=== PATIENT | female | born 1965 | race Caucasian/White ===

== ENCOUNTER → 2017-07-27 | Outpatient (CLI) | payer OTHER ==
[~2017-07-27] MED LIST: ALBU90OI61 INH; AMOX500 PO; ANTOXYBENA RIGHTEAR; Amoxicillin500 MG PO; Aygestin5 MG PO; B-12 DUAL SP5000 MCG PO; BACL10 PO; CARB100ER PO; CEPH500 PO; CHOL10002 PO; CIPHYDOTSU RIGHTEAR; CITA20; DOCU100 PO; DULO60 PO; FERROUS SULFATE PO; FISH OIL 1,0001 EAC1 PO; FISH OIL 1,0001 EACH PO; FLUO10 MT; Ferrous Sulfat325 MG PO; Fish Oil 10001000 MG PO; GABA300 PO; HYDACE5 PO; HYDHCL25 PO; IBUP600 PO; IBUP800 PO; INSDET100 SC; INSDET100 SQ; INSULANPEN SC; LEVEMIR FL100 UNIT/1 SC; LEVO-T50 MCG PO; LEVSOD100 PO; LISI5 PO; LOPE2C PO; LORA.5 PO; LORA1 PO; META800 PO; METF500 PO; METF500C PO; METFORMIN PO; MIRT15 PO; NAPR550 PO; Norco 5-325 Ta1 EACH PO; Novolog Fl100 UNIT/1 SC; OMEP20ER PO; OXYACE5T PO; Omeprazole20 M1 PO; PARO20 PO; PARO30 PO; PIOG15; PRAZ2 PO; PRED20 PO; PROM25 PO; PROM6.25SY PO; PYRI100 PO; Percocet 5-3251 EACH PO; Prilosec Otc20 MG PO; ROPI.25 PO; SERT100 PO; Solaraze100 GM TOP; TRULICITY0.75 MG/0. SC; TRULICITY1.5 MG/0.5 SQ; VENL75ER PO; VITAMIN B122500 MC1 PO; VITAMIN B6 PO; VITAMIN D310000 UNI1 PO; Voltaren100 GM TOP; ZOLOFT PO
[2017-07-29 11:36] LABS: HPV Genotype 16 Not Detected (NOTDET); HPV Genotype 18 Not Detected (NOTDET)
[2017-08-07 20:39] LABS: HPV High Risk Other Not Detected (NOTDET)
== END | disposition home or self-care (01) ==
LOC: LAB 12:18
PROVIDERS: Obstetrics & Gynecology
DX: R87.810 Cervical high risk human papillomavirus (HPV) DNA test positive (principal)
CPT/HCPCS: 87624; 88142

== ENCOUNTER 2017-10-13 10:18 | Day surgery (SDC) | payer OTHER ==
[~2017-10-13] VITALS: Ht 175.3 cm; Wt 147.9 kg
[~2017-10-13 10:18] MED LIST changes: -B-12 DUAL SP5000 MCG PO; -CHOL10002 PO; -DOCU100 PO; -FERROUS SULFATE PO; -Ferrous Sulfat325 MG PO; -Fish Oil 10001000 MG PO; -HYDHCL25 PO; -INSDET100 SC; -LEVO-T50 MCG PO; -LEVSOD100 PO; -METF500C PO; -Novolog Fl100 UNIT/1 SC; -Omeprazole20 M1 PO; -PARO20 PO; -PARO30 PO; -PYRI100 PO; -Percocet 5-3251 EACH PO; -Solaraze100 GM TOP; -VITAMIN B122500 MC1 PO; -VITAMIN B6 PO; -VITAMIN D310000 UNI1 PO; -Voltaren100 GM TOP
== END 2017-10-13 13:30 | disposition home or self-care (01) ==
LOC: ORSCMMR 10:18 → ORD 11:45 → ORSCMMR 13:30
PROVIDERS: Internal Medicine Gastroenterology
PROC: 0D758ZZ Dilation of Esophagus, Via Natural or Artificial Opening Endoscopic (ICD-10-PCS; principal; 2017-10-13 11:45)
PROC: 0DB58ZX Excision of Esophagus, Via Natural or Artificial Opening Endoscopic, Diagnostic (ICD-10-PCS; principal; 2017-10-13 11:45)
PROC: 0DB68ZX Excision of Stomach, Via Natural or Artificial Opening Endoscopic, Diagnostic (ICD-10-PCS; principal; 2017-10-13 11:45)
PROC: 0DB98ZX Excision of Duodenum, Via Natural or Artificial Opening Endoscopic, Diagnostic (ICD-10-PCS; principal; 2017-10-13 11:45)
DX: R13.10 Dysphagia, unspecified (principal); K31.7 Polyp of stomach and duodenum; K22.2 Esophageal obstruction; D50.9 Iron deficiency anemia, unspecified; R10.9 Unspecified abdominal pain; J45.909 Unspecified asthma, uncomplicated; G47.33 Obstructive sleep apnea (adult) (pediatric); E11.9 Type 2 diabetes mellitus without complications; B19.20 Unspecified viral hepatitis C without hepatic coma; E66.9 Obesity, unspecified; Z68.42 Body mass index [BMI] 45.0-49.9, adult; Z79.4 Long term (current) use of insulin; Z79.899 Other long term (current) drug therapy
CPT/HCPCS: 82947; 88305; 88341; 88342; J7120

== ENCOUNTER 2019-12-06 23:04 | Emergency (ER) | payer MEDICARE, OTHER ==
[~2019-12-06] VITALS: Ht 175.3 cm; Wt 140.6 kg
[~2019-12-06 23:04] MED LIST changes: +B-12 DUAL SP5000 MCG PO; +CHOL10002 PO; +DOCU100 PO; +FERROUS SULFATE PO; +Ferrous Sulfat325 MG PO; +Fish Oil 10001000 MG PO; +HYDHCL25 PO; +INSDET100 SC; +LEVO-T50 MCG PO; +LEVSOD100 PO; +METF500C PO; +Novolog Fl100 UNIT/1 SC; +Omeprazole20 M1 PO; +PARO20 PO; +PARO30 PO; +PYRI100 PO; +Percocet 5-3251 EACH PO; +Solaraze100 GM TOP; +VITAMIN B122500 MC1 PO; +VITAMIN B6 PO; +VITAMIN D310000 UNI1 PO; +Voltaren100 GM TOP
[2019-12-06] MEDS ORDERED: BUPR150ER PO (23:48)
[2019-12-07 00:32] LABS: BASOPHILS ABSOLUTE AUTO 0.07 K/mm3 (0.00-0.23); BASOPHILS PERCENT AUTO 1 % (0-2); EOSINOPHILS ABSOLUTE AUTO 0.28 K/mm3 (0.00-0.68); EOSINOPHILS PERCENT AUTO 4 % (0-6); Hematocrit 42.9 % (33.0-51.0); IMMATURE GRAN ABSOLUTE AUTO 0.05 K/mm3 (0.00-0.10); IMMATURE GRAN PERCENT AUTO 1 % (0-1); LYMPHOCYTES ABSOLUTE AUTO 1.58 K/mm3 (0.84-5.20); LYMPHOCYTES PERCENT AUTO 22 % (21-46); MONOCYTES ABSOLUTE AUTO 1.19 K/mm3 (0.16-1.47); MONOCYTES PERCENT AUTO 17 % (4-13); Mean Corpuscular HGB Conc 32.6 g/dL (31.5-36.5); Mean Corpuscular Volume 98 fL (80-100); NEUTROPHILS PERCENT AUTO 55 % (41-73); Platelet Count 278 K/mm3 (150-400); RDW Coefficient Variation 13.2 % (11.7-14.2); RDW Standard Deviation 47.8 fL (35.1-46.3); Red Blood Cell Count 4.37 M/mm3 (3.80-5.20); White Blood Cell Count 7.07 K/mm3 (4.00-11.30)
[2019-12-07 00:50] LABS: Alanine Aminotransfer (ALT/SGP 23 U/L (12-78); Albumin, Blood 2.8 g/dL (3.4-5.0); Albumin/Globulin Ratio 0.7 (0.8-1.8); Alk Phos 84 U/L (50-136); Anion Gap 6 mmol/L (6-16); Aspartate Aminotrans (AST/SGOT 17 U/L (12-37); Bilirubin, Total 0.3 mg/dL (0.1-1.0); Blood Urea Nitrogen 9 mg/dL (8-24); Bun/Creatinine Ratio 11.5 (12.0-20.0); CO2, Blood 27 mmol/L (21-32); Calcium, Blood 8.3 mg/dL (8.5-10.1); Chloride, Blood 103 mmol/L (98-108); Creatinine, Blood 0.78 mg/dL (0.40-1.00); Globulin, Blood 4.3 g/dL (2.2-4.0); Glomerular Filtration Rate >60 (60-); Glucose, Blood 278 mg/dL (70-99); Magnesium, Blood 1.2 mg/dL (1.6-2.4); Potassium, Blood 4.1 mmol/L (3.5-5.5); Sodium, Blood 136 mmol/L (136-145); Total Protein, Blood 7.1 g/dL (6.4-8.2)
== END 2019-12-07 02:53 | disposition home or self-care (01) ==
LOC: ER 23:04
PROVIDERS: Emergency Medicine
DX: R19.7 Diarrhea, unspecified (principal); E86.0 Dehydration; E83.42 Hypomagnesemia; E11.9 Type 2 diabetes mellitus without complications; Z91.09 Other allergy status, other than to drugs and biological substances; Z88.8 Allergy status to other drugs, medicaments and biological substances; Z79.4 Long term (current) use of insulin; Z79.899 Other long term (current) drug therapy
CPT/HCPCS: 36415; 80053; 83735; 85025; 93005; 93010; 96361; 96365; 99284; J3475; J7120

== ENCOUNTER → 2020-01-08 | Outpatient (CLI) | payer MEDICARE, OTHER ==
[~2020-01-08] MED LIST changes: +BUPR150ER PO
== END | disposition home or self-care (01) ==
LOC: LAB SHORT 17:34 → LAB 17:34
DX: N39.0 Urinary tract infection, site not specified (principal)
CPT/HCPCS: 87077; 87086; 87186

== ENCOUNTER → 2020-09-08 | Outpatient (CLI) | payer MEDICARE, OTHER ==
[~2020-09-08] MED LIST changes: +Colace250 MG PO; +Florastor250 MG PO; +HYDR1TAB94 PO; +IBUP400 PO; +LEVEMIR FL100 UNIT/2 SC; +LEVFLO500 PO; -LEVO-T50 MCG PO; +LEVSOD137 PO; +SUMA25 PO; +VITAMIN D3-ALO1 EACH PO; -VITAMIN D310000 UNI1 PO; +VITAMIN D5000 UNIT PO
[2020-09-09 14:17] LABS: Appearance, Urine Clear (Clear); Bilirubin, Urine Neg (Neg); Blood, Urine Neg (Neg); Color, Urine Yellow (P-Yellow); Glucose Qualitative, Urine 4+ (Neg); Ketones, Urine 1+ (Neg); Leukocyte Esterase, Urine 1+ (Neg); Nitrite, Urine Neg (Neg); Protein, Urine Neg (Neg); Urobilinogen, Urine NORM (Normal)
[2020-09-09 14:28] LABS: Red Blood Cells, Urine 0-2 /hpf (0-2); Squamous Epithelial Cells Few /hpf (Few); White Blood Cells, Urine 0-2 /hpf (0-5)
[2020-09-09 14:29] LABS: Bacteria Rare /hpf
== END | disposition home or self-care (01) ==
LOC: LAB SHORT 17:10 → LAB SRC 17:10 → LAB SHORT 09-09 07:44
PROVIDERS: Registered Nurse
DX: R35.0 Frequency of micturition (principal)
CPT/HCPCS: 81001

== ENCOUNTER 2020-11-17 21:33 | Observation (INO) | payer MEDICARE, OTHER ==
[~2020-11-17] VITALS: Ht 172.7 cm; Wt 160.3 kg
[~2020-11-17 21:33] MED LIST changes: -Florastor250 MG PO; -IBUP400 PO; -LEVFLO500 PO; -SUMA25 PO; -VITAMIN D5000 UNIT PO
[2020-11-17 22:26] LABS: BASOPHILS ABSOLUTE AUTO 0.08 K/mm3 (0.00-0.23); BASOPHILS PERCENT AUTO 1 % (0-2); EOSINOPHILS ABSOLUTE AUTO 0.01 K/mm3 (0.00-0.68); EOSINOPHILS PERCENT AUTO 0 % (0-6); Hematocrit 45.1 % (33.0-51.0); Hemoglobin 15.4 g/dL (11.5-16.0); IMMATURE GRAN ABSOLUTE AUTO 0.09 K/mm3 (0.00-0.10); IMMATURE GRAN PERCENT AUTO 1 % (0-1); LYMPHOCYTES ABSOLUTE AUTO 1.06 K/mm3 (0.84-5.20); LYMPHOCYTES PERCENT AUTO 9 % (21-46); MONOCYTES ABSOLUTE AUTO 1.68 K/mm3 (0.16-1.47); MONOCYTES PERCENT AUTO 15 % (4-13); Mean Corpuscular HGB 32.1 pg (26.0-34.0); Mean Corpuscular HGB Conc 34.1 g/dL (31.5-36.5); Mean Corpuscular Volume 94 fL (80-100); Mean Platelet Volume 10.1 fL (9.1-12.4); NEUTROPHILS ABSOLUTE AUTO 8.46 K/mm3 (1.96-9.15); NEUTROPHILS PERCENT AUTO 74 % (41-73); Platelet Count 291 K/mm3 (150-400); RDW Coefficient Variation 13.1 % (11.7-14.2); RDW Standard Deviation 44.9 fL (35.1-46.3); White Blood Cell Count 11.38 K/mm3 (4.00-11.30)
[2020-11-17 22:45] LABS: Alanine Aminotransfer (ALT/SGP 31 U/L (12-78); Albumin, Blood 3.2 g/dL (3.4-5.0); Albumin/Globulin Ratio 0.7 (0.8-1.8); Alk Phos 77 U/L (50-136); Anion Gap 6 mmol/L (6-16); Aspartate Aminotrans (AST/SGOT 18 U/L (12-37); Bilirubin, Total 0.7 mg/dL (0.1-1.0); Blood Urea Nitrogen 10 mg/dL (8-24); Bun/Creatinine Ratio 12.3 (12.0-20.0); CO2, Blood 25 mmol/L (21-32); Calcium, Blood 9.4 mg/dL (8.5-10.1); Chloride, Blood 100 mmol/L (98-108); Creatinine, Blood 0.81 mg/dL (0.40-1.00); Globulin, Blood 4.5 g/dL (2.2-4.0); Glomerular Filtration Rate >60 (60-); Glucose, Blood 220 mg/dL (70-99); Potassium, Blood 3.6 mmol/L (3.5-5.5); Sodium, Blood 131 mmol/L (136-145); Total Protein, Blood 7.7 g/dL (6.4-8.2)
[2020-11-18 00:32] LABS: Source, Urine Clean Catch
[2020-11-18 00:34] LABS: Bilirubin, Urine Neg (Neg); Blood, Urine 2+ (Neg); Glucose Qualitative, Urine 1+ (Neg); Ketones, Urine 2+ (Neg); Leukocyte Esterase, Urine 2+ (Neg); Nitrite, Urine Neg (Neg); Protein, Urine 2+ (Neg); Specific Gravity, Urine 1.015 (1.003-1.022); Urobilinogen, Urine NORM (Normal)
[2020-11-18 00:40] LABS: Appearance, Urine Clear (Clear); Bacteria Many /hpf; Color, Urine Yellow (P-Yellow); Mucus Light (0-Heavy); Red Blood Cells, Urine 0-2 /hpf (0-2); Squamous Epithelial Cells Mod /hpf (Few); White Blood Cells, Urine 25-50 /hpf (0-5)
--- NOTE | 2020-11-18 03:29 | NUR ---
transfer report from [facility] Rn on 55 year old female being admitted OBS status with sepsis UTI. IDDM covid 19 neg status. PT recently dx with UTI & has positive UA C & S pending. Will be on tele. Await admission
[2020-11-18] MEDS ORDERED: GABA300 PO (08:54)
[2020-11-18] MEDS ORDERED: VITAMIN D5000 UNIT PO (08:58)
--- NOTE | 2020-11-18 09:09 | NUR ---
REVIEWED PT HOME MEDSICATIONS WITH HER AND MANY OF THE DOSES CHANGED. CALLED DR CAUSEY HE IS AWARE. RESET THE MED REC REVIEW SO HE CAN ORDER THE PT HOME MEDICATIONS SHE TAKES THEM.
[2020-11-18 10:16] LABS: BASOPHILS ABSOLUTE AUTO 0.06 K/mm3 (0.00-0.23); BASOPHILS PERCENT AUTO 1 % (0-2); EOSINOPHILS ABSOLUTE AUTO 0.05 K/mm3 (0.00-0.68); EOSINOPHILS PERCENT AUTO 1 % (0-6); Hematocrit 38.3 % (33.0-51.0); Hemoglobin 13.1 g/dL (11.5-16.0); IMMATURE GRAN ABSOLUTE AUTO 0.06 K/mm3 (0.00-0.10); IMMATURE GRAN PERCENT AUTO 1 % (0-1); LYMPHOCYTES ABSOLUTE AUTO 1.29 K/mm3 (0.84-5.20); LYMPHOCYTES PERCENT AUTO 14 % (21-46); MONOCYTES ABSOLUTE AUTO 1.79 K/mm3 (0.16-1.47); MONOCYTES PERCENT AUTO 20 % (4-13); Mean Corpuscular HGB 32.4 pg (26.0-34.0); Mean Corpuscular HGB Conc 34.2 g/dL (31.5-36.5); Mean Corpuscular Volume 95 fL (80-100); Mean Platelet Volume 9.9 fL (9.1-12.4); NEUTROPHILS ABSOLUTE AUTO 5.86 K/mm3 (1.96-9.15); NEUTROPHILS PERCENT AUTO 64 % (41-73); Platelet Count 214 K/mm3 (150-400); RDW Coefficient Variation 13.2 % (11.7-14.2); RDW Standard Deviation 45.8 fL (35.1-46.3); Red Blood Cell Count 4.04 M/mm3 (3.80-5.20); White Blood Cell Count 9.11 K/mm3 (4.00-11.30)
[2020-11-18 10:55] LABS: Alanine Aminotransfer (ALT/SGP 24 U/L (12-78); Albumin, Blood 2.5 g/dL (3.4-5.0); Albumin/Globulin Ratio 0.6 (0.8-1.8); Alk Phos 59 U/L (50-136); Anion Gap 8 mmol/L (6-16); Aspartate Aminotrans (AST/SGOT 19 U/L (12-37); Bilirubin, Total 0.5 mg/dL (0.1-1.0); Blood Urea Nitrogen 10 mg/dL (8-24); Bun/Creatinine Ratio 14.8 (12.0-20.0); CO2, Blood 22 mmol/L (21-32); Calcium, Blood 8.7 mg/dL (8.5-10.1); Chloride, Blood 104 mmol/L (98-108); Creatinine, Blood 0.68 mg/dL (0.40-1.00); Glomerular Filtration Rate >60 (60-); Glucose, Blood 250 mg/dL (70-99); Potassium, Blood 3.5 mmol/L (3.5-5.5); Sodium, Blood 134 mmol/L (136-145); Total Protein, Blood 6.5 g/dL (6.4-8.2)
--- NOTE | 2020-11-18 16:10 | NUR ---
CALLED DR CAUSEY- PT C/O 02/23 HEADACHE. MEDICATED WITH TYLENOL ITH NO RELIEF. CALLED FOR NEW ORDER. PT TAKES IBUPROFEN 800MG PO AT HOME RECIEVED ORDER OF 400MG PO Q6P FOR HEADACHE, FEVER OR PAIN.
--- NOTE | 2020-11-18 18:05 | NUR ---
SHIFT SUMMARY- PT HAD A FEVER EARLY IN THE SHIFT 101 RANGE. TYLENOL MANAGED IT. PT HAD A HEADACHE WITH THE FEVER RESOLVED WITH THE TYLENOL. HEADACHE RETURNED WITHOUT A FEVER, TYLENOL INEFFECTIVE, IT DID IMPROVE WITH IBUPROFEN THOUGH. PT STATED SHE HAS FULL BODY ACHES TO GO WITH ALL OF THIS, THOSE REMAIN UNCHANGED. PT ALERT AND ORIENTED INDEPENDENT TO THE BEDSIDE COMODE. PT HAS A Hx OF FALLS AT HOME, FOR ANY AMBULATION SHE REQUIRES SBA AND SHE IS AWARE. PT CALLS APPROPRIATELY. PT WAS UNABLE TO TELL ANIMAL NUTRITION CONSULTANT RN WHAT MEDICATIONS SHE TAKES BUT LATER IN THE DAY SHE WAS MORE ALERT AND WAS ABLE TO STATE MEDS AND DOSE. MED REC COMPLETED DR BELTRAN, MEDS THAT WERE ORDERED WERE CHANGED TO MATCH HOME DOSES. WILL CTM AND PASS ON TO NIGHT RN IN BEDSIDE REPORT.
--- NOTE | 2020-11-19 07:10 | NUR ---
SHIFT SUMMARY: PATIENT IS A&OX4, CONTINUES TO REPORT HEADACHE PAIN 01/23. IBUPROPHEN AND TYLENOL ARE ALTERNATED WITH FAIR EFFECT. NO TEMP THIS SHIFT. UP TO THE BSC INDEPENDANTLTY TO VOID.
[2020-11-19] MEDS ORDERED: Florastor250 MG PO (12:28)
[2020-11-19] MEDS ORDERED: LEVFLO500 PO (12:28)
[2020-11-19] MEDS ORDERED: IBUP400 PO (12:28)
[2020-11-19] MEDS ORDERED: SUMA25 PO (12:30)
--- NOTE | 2020-11-19 14:51 | NUR ---
DISCHARGE NOTE- PT WAS GIVEN VERBAL AND WRRITTEN DISCHARGE INSTRUCTIONS AND ACKNOWLEDGED UNDERSTANDING OF THEM. PT IV AND TELE DC'D PRIOR TO DISCHARGE, MEDS FAXED TO [facility] PER PT REQUEST. HARD COPY SCRIPT FOR IMITREX PROVIDED. NO S&S OF DISTRESS NOTED AT THE TIME OF DISCHARGE. PT ESCORTED OUT VIA WC BY THE DISCHAGRE VOLUNTEER.
== END 2020-11-19 13:25 | disposition home or self-care (01) ==
LOC: ER 21:33 → MEDS 21:35 → ER 11-18 02:03 → MEDS 11-18 02:03 → EDBEDREQTM 11-18 03:16 → EDBEDREQDT 11-18 03:16 → EDBEDREQ 11-18 03:16 → MEDS 11-18 04:14
PROVIDERS: Emergency Medicine; Internal Medicine; ADMIT Family Medicine
DX: A41.9 Sepsis, unspecified organism (principal); N39.0 Urinary tract infection, site not specified; B96.20 Unspecified Escherichia coli [E. coli] as the cause of diseases classified elsewhere; E86.0 Dehydration; E11.65 Type 2 diabetes mellitus with hyperglycemia; E11.40 Type 2 diabetes mellitus with diabetic neuropathy, unspecified; E03.9 Hypothyroidism, unspecified; K21.9 Gastro-esophageal reflux disease without esophagitis; Z79.4 Long term (current) use of insulin
CPT/HCPCS: 36415; 71046; 80053; 81001; 82947; 83605; 83880; 85025; 87040; 87086; 93005; 93010; 96365; 96372; 96375; 96376; 99284-25; A9270; G0378; J0696; J1650; J1885; J2405; J7030; J7120

== ENCOUNTER → 2021-05-28 | Outpatient (CLI) | payer MEDICARE, OTHER ==
[~2021-05-28] MED LIST changes: +Florastor250 MG PO; +IBUP400 PO; +LEVFLO500 PO; +SUMA25 PO; +VITAMIN D5000 UNIT PO
== END | disposition home or self-care (01) ==
LOC: LAB SHORT 17:00
DX: R30.0 Dysuria (principal)
CPT/HCPCS: 87077; 87086; 87186

== ENCOUNTER → 2021-12-04 | Outpatient (CLI) | payer MEDICARE, OTHER | LOC: LAB 15:20 → LAB SHORT 15:20 | DX: R30.0 Dysuria (principal) | CPT/HCPCS: 87077; 87086; 87186 ==

== ENCOUNTER 2021-12-26 13:56 | Emergency (ER) | payer MEDICARE, OTHER ==
[~2021-12-26] VITALS: Ht 172.7 cm; Wt 135.2 kg
[2021-12-26 14:30] LABS: BASOPHILS PERCENT AUTO 1 % (0-2); EOSINOPHILS PERCENT AUTO 5 % (0-6); Hematocrit 44.9 % (33.0-51.0); Hemoglobin 14.9 g/dL (11.5-16.0); IMMATURE GRAN ABSOLUTE AUTO 0.03 K/mm3 (0.00-0.10); IMMATURE GRAN PERCENT AUTO 0 % (0-1); LYMPHOCYTES PERCENT AUTO 22 % (21-46); MONOCYTES ABSOLUTE AUTO 1.05 K/mm3 (0.16-1.47); MONOCYTES PERCENT AUTO 11 % (4-13); Mean Corpuscular HGB 31.8 pg (26.0-34.0); Mean Corpuscular HGB Conc 33.2 g/dL (31.5-36.5); Mean Corpuscular Volume 96 fL (80-100); Mean Platelet Volume 10.5 fL (9.1-12.4); NEUTROPHILS ABSOLUTE AUTO 5.55 K/mm3 (1.96-9.15); NEUTROPHILS PERCENT AUTO 60 % (41-73); Platelet Count 378 K/mm3 (150-400); RDW Coefficient Variation 12.7 % (11.7-14.2); RDW Standard Deviation 44.8 fL (35.1-46.3); Red Blood Cell Count 4.68 M/mm3 (3.80-5.20); White Blood Cell Count 9.23 K/mm3 (4.00-11.30)
[2021-12-26 14:42] LABS: Albumin, Blood 3.6 g/dL (3.4-5.0); Bilirubin, Total 0.7 mg/dL (0.1-1.0); Calcium, Blood 9.7 mg/dL (8.5-10.1); Creatinine, Blood 0.73 mg/dL (0.40-1.00); Globulin, Blood 3.7 g/dL (2.2-4.0); Potassium, Blood 3.9 mmol/L (3.5-5.5); Total Protein, Blood 7.3 g/dL (6.4-8.2)
[2021-12-26 18:15] LABS: Source, Urine Clean Catch
[2021-12-26 18:31] LABS: Appearance, Urine Hazy (Clear); Bilirubin, Urine Neg (Neg); Blood, Urine 2+ (Neg); Color, Urine Yellow (P-Yellow); Glucose Qualitative, Urine Neg (Neg); Ketones, Urine 2+ (Neg); Leukocyte Esterase, Urine Neg (Neg); Nitrite, Urine Neg (Neg); Protein, Urine 1+ (Neg); Urobilinogen, Urine NORM (Normal)
[2021-12-26 18:43] LABS: Hyaline Casts 0-2 /lpf (0-2); Mucus Light (0-Heavy)
[2021-12-26 18:44] LABS: Bacteria Mod /hpf; Squamous Epithelial Cells Mod /hpf (Few)
[2021-12-26 18:45] LABS: Amorphous Light (0-Heavy); Calcium Oxalate Crystals Many /hpf; Transitional Epithelial Cells Rare /hpf (0-Rare)
[2021-12-26] MEDS ORDERED: Norco 5-325 Ta1 EACH PO (19:18)
== END 2021-12-26 19:38 | disposition home or self-care (01) ==
LOC: ER 13:56
PROVIDERS: Physician Assistant
DX: N20.1 Calculus of ureter (principal); E11.9 Type 2 diabetes mellitus without complications
CPT/HCPCS: 36415; 74176; 80053; 81001; 83690; 85025; J1885; J2405; J7030

== ENCOUNTER 2023-03-12 20:40 | Emergency (ER) | payer MEDICARE, OTHER ==
[~2023-03-12] VITALS: Ht 172.7 cm; Wt 101.2 kg
[2023-03-12 20:49] VITALS: BP 167/122
[2023-03-12] MEDS ORDERED: OZEMPIC0.25 MG/02 SC (21:50)
[2023-03-12] MEDS ORDERED: DESVENLAFAXINE100 M3 PO (21:50)
[2023-03-12] MEDS ORDERED: NEURONTIN300 MG PO (21:51)
[2023-03-12] MEDS ORDERED: BUPR100ER PO (21:51)
[2023-03-12] MEDS ORDERED: CYCL10 PO (22:51)
== END 2023-03-12 23:09 | disposition home or self-care (01) ==
LOC: ER 20:40
DX: S76.012A Strain of muscle, fascia and tendon of left hip, initial encounter (principal); M54.42 Lumbago with sciatica, left side; W07.XXXA Fall from chair, initial encounter; Z88.8 Allergy status to other drugs, medicaments and biological substances; Z79.899 Other long term (current) drug therapy; Z79.84 Long term (current) use of oral hypoglycemic drugs; Z79.4 Long term (current) use of insulin; E11.9 Type 2 diabetes mellitus without complications; E03.9 Hypothyroidism, unspecified; F43.10 Post-traumatic stress disorder, unspecified
CPT/HCPCS: 73502; 96372; 99283-25; A9270; J1885

== ENCOUNTER 2023-09-06 07:14 | Day surgery (SDC) | payer MEDICARE, OTHER ==
[2023-09-06] VITALS (8 sets, daily range): BP systolic 117–135; BP diastolic 72–82
[~2023-09-06] VITALS: Ht 172.7 cm; Wt 103.0 kg
[~2023-09-06 07:14] MED LIST changes: +BUPR100ER PO; +CYCL10 PO; +CeFAZolin Sodium 2,000 MG in NS 50 ML IV SCH; +DESVENLAFAXINE100 M3 PO; +Lactated Ringer's 1,000 ML IV SCH; +NEURONTIN300 MG PO; +OZEMPIC0.25 MG/02 SC
[2023-09-06] MEDS ORDERED: LEVSOD100 PO (07:40)
[2023-09-06] MEDS ORDERED: MOUNJARO2.5 MG/0.5 INJ (07:42)
[2023-09-06] MEDS ORDERED: CLIMARA1 EACH TD (07:43)
--- NOTE | 2023-09-06 08:16 | NUR ---
Wheelchaired into Day Surgery. History, Chart, Medications and Allergies reviewed before start of procedure. Pre-Op teaching done. Pt verbalizes understanding. Patient States Post-Procedure ride home has been arranged.
[2023-09-06] MEDS ORDERED: Ondansetron HCl 2 MG / ML 2ML Vial ONE (08:29)
[2023-09-06] MEDS ORDERED: propofoL 20 ML IV ONE (08:29)
[2023-09-06] MEDS ORDERED: Lidocaine HCl 2% 20 ML MDV ONE (08:29)
[2023-09-06] MEDS ORDERED: FentaNYL Citrate 50 MCG/ML 2 ML Injection ONE (08:29)
[2023-09-06] MEDS ORDERED: Dexamethasone Sod Phos 10 MG/ML 1ML VIAL ONE (08:29)
[2023-09-06] MEDS ORDERED: Ketorolac Tromethamine 30mg Vial ONE (08:30)
[2023-09-06] MEDS ORDERED: Bupivacaine 0.5% HCl 5 MG/ML 30MLVIAL ONE (08:33)
--- NOTE | 2023-09-06 09:34 | NUR ---
PT TO DAY SURGERY STEP DOWN FROM PACU. BEDSIDE REPORT RECEIEVED. PT HAS LIPOMA REMOVED FROM RIGHT UPPER ARM; INCISION IS C/D/I AND CLOSED WITH EXOFEN. PT IS AWAKE, ALERT AND ORIENTED; ABLE TO MOVE SELF IN BED. DENIES PAIN. VSS.
--- NOTE | 2023-09-06 09:50 | NUR ---
INCISION REMAINS C/D/I. PT TOLERATING PO FLUIDS. Discharge instructions reviewed with patient. Patient verbalizes understanding. Copy given to patient to take home. Patient States Post-Procedure ride home has been arranged. PT DECLINES ICE PACK
--- NOTE | 2023-09-06 10:04 | NUR ---
Patient up to Ambulate independently. Gait steady. Discharged via wheelchair to private car for ride home.
[2023-09-06] MEDS ORDERED: FentaNYL Citrate 50 MCG/ML 2 ML Injection IV PRN (10:30)
[2023-09-06] MEDS ORDERED: HYDROmorphone HCl/Pf 1MG SYR IV PRN (10:30)
[2023-09-06] MEDS ORDERED: Albuterol 2.5 MG/3 ML VIAL INH PRN (10:35)
[2023-09-06] MEDS ORDERED: Droperidol 5 mg/2 ml Vial IV PRN (10:35)
== END 2023-09-06 10:04 | disposition home or self-care (01) ==
LOC: ORSCMMR 07:14 → ORD 08:30 → ORSCMMR 08:30
PROVIDERS: Surgery
PROC: 0JBD0ZZ Excision of Right Upper Arm Subcutaneous Tissue and Fascia, Open Approach (ICD-10-PCS; principal; 2023-09-06 08:30)
DX: D17.21 Benign lipomatous neoplasm of skin and subcutaneous tissue of right arm (principal); E11.9 Type 2 diabetes mellitus without complications; I10 Essential (primary) hypertension; F41.9 Anxiety disorder, unspecified; F60.3 Borderline personality disorder; F32.A Depression, unspecified; E06.3 Autoimmune thyroiditis; E78.5 Hyperlipidemia, unspecified; G47.33 Obstructive sleep apnea (adult) (pediatric); F43.10 Post-traumatic stress disorder, unspecified; G50.0 Trigeminal neuralgia; Z79.4 Long term (current) use of insulin; Z79.84 Long term (current) use of oral hypoglycemic drugs; Z79.85 Long-term (current) use of injectable non-insulin antidiabetic drugs; Z79.899 Other long term (current) drug therapy
CPT/HCPCS: 82947; 88304; 93005; 93010; J0690; J1100; J1885; J2405; J2704; J3010; J7120

== ENCOUNTER 2024-05-13 22:47 | Emergency (ER) | payer MEDICARE, OTHER ==
[~2024-05-13] VITALS: Ht 172.7 cm; Wt 99.8 kg
[~2024-05-13 22:47] MED LIST changes: +CLIMARA1 EACH TD; -CeFAZolin Sodium 2,000 MG in NS 50 ML IV SCH; -Lactated Ringer's 1,000 ML IV SCH; +MOUNJARO2.5 MG/0.5 INJ
[2024-05-13] MEDS ORDERED: Ondansetron HCl 2 MG / ML 2ML Vial IV PRN (23:00)
[2024-05-13] MEDS ORDERED: NS 1,000 ML IV SCH (23:10)
[2024-05-13 23:19] LABS: BASOPHILS PERCENT AUTO 1 % (0-2); EOSINOPHILS ABSOLUTE AUTO 0.27 K/mm3 (0.00-0.68); EOSINOPHILS PERCENT AUTO 3 % (0-6); Hematocrit 43.8 % (33.0-51.0); Hemoglobin 14.9 g/dL (11.5-16.0); IMMATURE GRAN ABSOLUTE AUTO 0.01 K/mm3 (0.00-0.10); IMMATURE GRAN PERCENT AUTO 0 % (0-1); LYMPHOCYTES ABSOLUTE AUTO 1.84 K/mm3 (0.84-5.20); LYMPHOCYTES PERCENT AUTO 22 % (21-46); MONOCYTES ABSOLUTE AUTO 0.63 K/mm3 (0.16-1.47); MONOCYTES PERCENT AUTO 8 % (4-13); Mean Corpuscular HGB 32.1 pg (26.0-34.0); Mean Corpuscular Volume 94 fL (80-100); Mean Platelet Volume 9.2 fL (9.1-12.4); NEUTROPHILS ABSOLUTE AUTO 5.47 K/mm3 (1.96-9.15); NEUTROPHILS PERCENT AUTO 66 % (41-73); Platelet Count 323 K/mm3 (150-400); RDW Coefficient Variation 12.6 % (11.7-14.2); RDW Standard Deviation 43.8 fL (35.1-46.3); Red Blood Cell Count 4.64 M/mm3 (3.80-5.20); White Blood Cell Count 8.32 K/mm3 (4.00-11.30)
[2024-05-13 23:40] LABS: Albumin, Blood 3.5 g/dL (3.4-5.0); Albumin/Globulin Ratio 0.9 (0.8-1.8); Bilirubin, Total 0.9 mg/dL (0.1-1.0); Bun/Creatinine Ratio 22.1 (12.0-20.0); Calcium, Blood 9.3 mg/dL (8.5-10.1); Creatinine, Blood 0.72 mg/dL (0.40-1.00); Globulin, Blood 3.8 g/dL (2.2-4.0); Total Protein, Blood 7.3 g/dL (6.4-8.2)
[2024-05-13 23:45] VITALS: BP 158/108
[2024-05-14 00:43] LABS: Source, Urine Clean Catch
[2024-05-14 00:45] LABS: Bilirubin, Urine Neg (Neg); Blood, Urine Neg (Neg); Glucose Qualitative, Urine Neg (Neg); Ketones, Urine 4+ (Neg); Leukocyte Esterase, Urine Neg (Neg); Nitrite, Urine Neg (Neg); Protein, Urine 1+ (Neg); Urobilinogen, Urine NORM (Normal)
[2024-05-14 00:53] LABS: Appearance, Urine Hazy (Clear); Color, Urine Yellow (P-Yellow)
[2024-05-14 00:54] LABS: Bacteria Many /hpf; Red Blood Cells, Urine Not Seen /hpf (0-2); Squamous Epithelial Cells Mod /hpf (Few); White Blood Cells, Urine 0-2 /hpf (0-5)
[2024-05-14] MEDS ORDERED: RX Prepack 2 Tabs Ondansetron ODT 4MG UD ONE (01:40)
[2024-05-14] MEDS ORDERED: ONDA4ODT MM (01:41)
[2024-05-14] MEDS ORDERED: LOPE2C PO (01:41)
== END 2024-05-14 01:49 | disposition home or self-care (01) ==
LOC: ER 22:47
PROVIDERS: Emergency Medicine
DX: R11.2 Nausea with vomiting, unspecified (principal); R19.7 Diarrhea, unspecified; E86.0 Dehydration; E03.9 Hypothyroidism, unspecified; E11.9 Type 2 diabetes mellitus without complications; Z90.49 Acquired absence of other specified parts of digestive tract; Z91.041 Radiographic dye allergy status; Z88.8 Allergy status to other drugs, medicaments and biological substances; Z79.890 Hormone replacement therapy; Z79.84 Long term (current) use of oral hypoglycemic drugs; Z79.899 Other long term (current) drug therapy
CPT/HCPCS: 80053; 81001; 83690; 84484; 85025; 87086; 93005; 93010; 96361; 96374; 99284-25; A9270; J2405; J7030

== ENCOUNTER → 2024-07-09 | Outpatient (CLI) | payer MEDICARE, OTHER ==
[~2024-07-09] MED LIST changes: +ONDA4ODT MM
== END ==
LOC: LAB 17:07 → LAB SHORT 17:07
DX: R35.0 Frequency of micturition (principal); R30.9 Painful micturition, unspecified
CPT/HCPCS: 87086

== ENCOUNTER 2025-06-29 18:41 | Emergency (ER) | payer MEDICARE, OTHER ==
[~2025-06-29] VITALS: Ht 167.6 cm; Wt 89.8 kg
[2025-06-29 19:33] LABS: BASOPHILS ABSOLUTE AUTO 0.07 K/mm3 (0.00-0.23); BASOPHILS PERCENT AUTO 1 % (0-2); EOSINOPHILS ABSOLUTE AUTO 0.20 K/mm3 (0.00-0.68); EOSINOPHILS PERCENT AUTO 3 % (0-6); Hematocrit 40.3 % (33.0-51.0); Hemoglobin 13.7 g/dL (11.5-16.0); IMMATURE GRAN ABSOLUTE AUTO 0.01 K/mm3 (0.00-0.10); IMMATURE GRAN PERCENT AUTO 0 % (0-1); LYMPHOCYTES ABSOLUTE AUTO 1.83 K/mm3 (0.84-5.20); LYMPHOCYTES PERCENT AUTO 25 % (21-46); MONOCYTES ABSOLUTE AUTO 0.64 K/mm3 (0.16-1.47); MONOCYTES PERCENT AUTO 9 % (4-13); Mean Corpuscular HGB Conc 34.0 g/dL (31.5-36.5); Mean Corpuscular Volume 94 fL (80-100); NEUTROPHILS ABSOLUTE AUTO 4.64 K/mm3 (1.96-9.15); NEUTROPHILS PERCENT AUTO 63 % (41-73); NRBC ABSOLUTE 0.00 K/mm3 (0.00-0.02); NRBC Auto 0.0 /100 WBC (0.0-0.2); Platelet Count 322 K/mm3 (150-400); RDW Coefficient Variation 12.6 % (11.7-14.2); RDW Standard Deviation 43.7 fL (35.1-46.3)
[2025-06-29] MEDS ORDERED: NS 1,000 ML IV SCH ×2 (19:35→21:15)
[2025-06-29] MEDS ORDERED: Ondansetron HCl 2 MG / ML 2ML Vial IV ONE (19:40)
[2025-06-29 20:06] LABS: Alanine Aminotransfer (ALT/SGP 20.0 U/L (12-78); Albumin, Blood 3.8 g/dL (3.4-5.0); Albumin/Globulin Ratio 1.1 (0.8-1.8); Anion Gap 13.0 mmol/L (3-11); Aspartate Aminotrans (AST/SGOT 26.0 U/L (12-37); Bilirubin, Total 0.7 mg/dL (0.1-1.0); Blood Urea Nitrogen 10.0 mg/dL (8-24); CO2, Blood 20.0 mmol/L (21-32); Calcium, Blood 9.3 mg/dL (8.5-10.1); Chloride, Blood 107.0 mmol/L (98-108); Creatinine, Blood 0.78 mg/dL (0.40-1.00); Globulin, Blood 3.4 g/dL (2.2-4.0); Glucose, Blood 103.0 mg/dL (70-99); Potassium, Blood 4.1 mmol/L (3.5-5.5); Sodium, Blood 136.0 mmol/L (136-145); Total Protein, Blood 7.2 g/dL (6.4-8.2)
[2025-06-29] MEDS ORDERED: DiphenhydrAMINE HCl 50 MG/ML 1ML Vial IV ONE (21:15)
[2025-06-29] MEDS ORDERED: Prochlorperazine Edisylate 10 mg Vial IV ONE (21:15)
[2025-06-29 21:56] LABS: Source, Urine Clean Catch
[2025-06-29 22:11] LABS: Bilirubin, Urine Neg (Neg); Glucose Qualitative, Urine Neg (Neg); Ketones, Urine 4+ (Neg); Leukocyte Esterase, Urine Neg (Neg); Protein, Urine 1+ (Neg); Specific Gravity, Urine 1.020 (1.003-1.022); Urobilinogen, Urine NORM (Normal)
[2025-06-29 22:13] LABS: Color, Urine Yellow (P-Yellow)
[2025-06-29 22:15] VITALS: BP 137/107
[2025-06-29 22:18] LABS: Red Blood Cells, Urine Not Seen /hpf (0-2)
[2025-06-29 22:19] LABS: U Amphetamine Screen Not Detected; U Barbiturate Screen Not Detected; U Benzodiazapine Screen DETECTED; U Buprenorphine Screen Not Detected; U Cannabinoids Screen Not Detected; U Cocaine Screen Not Detected; U Methadone Screen Not Detected; U Methamphetamine Screen Not Detected; U Opiates Screen Not Detected; U Oxycodone Screen Not Detected; U Phencyclidine Screen Not Detected
== END 2025-06-29 22:20 | disposition left against medical advice (07) ==
LOC: ER 18:41
PROVIDERS: Physician Assistant
DX: E86.0 Dehydration (principal); R11.2 Nausea with vomiting, unspecified; F41.9 Anxiety disorder, unspecified; R10.32 Left lower quadrant pain; E11.9 Type 2 diabetes mellitus without complications; E03.9 Hypothyroidism, unspecified; Z53.29 Procedure and treatment not carried out because of patient's decision for other reasons; Z91.041 Radiographic dye allergy status; Z88.8 Allergy status to other drugs, medicaments and biological substances; Z79.890 Hormone replacement therapy; Z79.84 Long term (current) use of oral hypoglycemic drugs; Z79.899 Other long term (current) drug therapy; Z59.89 Other problems related to housing and economic circumstances
CPT/HCPCS: 70450; 71046; 80053; 81001; 84484; 85025; J0780; J1200; J2405; J7030